=== PATIENT | male | born 1950 | race Caucasian/White ===

== ENCOUNTER 2023-06-11 20:09 | Emergency (ER) | payer MEDICARE, OTHER, SELFPAY ==
[2023-06-11 20:38] VITALS: BP 102/76; PULSE 61; RESP 17; TEMP 36.4; O2SAT 96
[2023-06-11 22:23] VITALS: BP 112/72; PULSE 109; RESP 21; TEMP 36.3; O2SAT 94
[2023-06-11] MEDS: ACETAMINOPHEN 500 MG TABLET 1000 MG PO (23:44)
[2023-06-11 23:51] VITALS: BP 110/76; PULSE 93; RESP 20; O2SAT 95
[2023-06-12 00:18] LABS: Strep Group A RT-PCR NOT DETECTED (Negative)
--- NOTE | 2023-06-12 00:24 | ED.GENADULT ---
HPI - General Adult General Chief complaint: Unspecified Stated complaint: sore throat Time Seen by Provider: 06/11/23 23:20 Source: patient Mode of arrival: ambulatory Limitations: no limitations History of Present Illness HPI narrative: This is a 72 year old male that presents to the ER for sore throat. Ongoing since this morning. Associated with rhinorrhea and a mild cough. Reports subjective fevers. Denies shortness of breath. Related Data Allergies Allergy/AdvReac Type Severity Reaction Status Date / Time No Known Allergies Allergy Verified 06/11/23 23:40 Review of Systems Review of Systems: CONSTITUTIONAL: Reports fever ENT: Reports rhinorrhea, congestion, sore throat RESPIRATORY: Reports cough. Denies dyspnea. All systems reviewed & are unremarkable except as noted in HPI and below PMFSH Past Medical History Medical History (Updated 06/12/23 @ 00:35 by Bessie Herzog PA-C) No active medical problems Social History Social History (Updated 06/12/23 @ 00:26 by Bessie Herzog PA-C) Smoking status: Former smoker Exam Narrative: GENERAL: Disheveled, well-nourished, and in no acute distress. HEAD: Normocephalic, atraumatic. EYES: EOMI. ENT: Nares clear, no rhinorrhea or epistaxis. Mucous membranes moist. Oropharynx with mild, symmetric tonsillar hypertrophy, no exudate or other lesions. Uvula midline. No trismus. Bilateral TMs pearly sue non-bulging NECK: Supple. No adenopathy or masses. CHEST: Clear to auscultation. No respiratory distress. No wheezes rales or rhonchi HEART: Regular rate and rhythm. No murmur heard. Normal peripheral pulses. EXTREMITIES: Normal range of motion. No edema. SKIN: Warm, dry, no rash. NEURO: No focal deficits. Alert and oriented x3. PSYCH: Normal mood and affect Course Course Emergency Course: Patient updated on workup and agrees with plan of care Vital Signs Vital signs: Vital Signs Temperature 97.6 F 06/11/23 20:38 Pulse Rate 61 06/11/23 20:38 Respiratory Rate 17 06/11/23 20:38 Blood Pressure 102/76 06/11/23 20:38 Pulse Oximetry 96 06/11/23 20:38 Temperature 97.4 F L 06/11/23 22:23 Pulse Rate 93 06/11/23 23:51 Respiratory Rate 20 06/11/23 23:51 Blood Pressure 110/76 06/11/23 23:51 Pulse Oximetry 95 06/11/23 23:51 Medical Decision Making MDM Narrative Medical decision making narrative: Patient presents to the emergency department for cold symptoms present since this morning. He is afebrile and nontoxic-appearing. His vitals are stable. Lungs are clear on exam. Largely endorsing sore throat. He has mild, symmetric tonsillar hypertrophy. Uvula is midline. No trismus. Influenza, COVID, and strep screens are negative. Patient was instructed on further care of viral infection. He is to follow-up with primary provider. He was given warnings to return to the ER Vital Signs Vital Signs: Vital Signs Temperature 97.6 F 06/11/23 20:38 Pulse Rate 61 06/11/23 20:38 Respiratory Rate 17 06/11/23 20:38 Blood Pressure 102/76 06/11/23 20:38 Pulse Oximetry 96 06/11/23 20:38 Temperature 97.4 F L 06/11/23 22:23 Pulse Rate 93 06/11/23 23:51 Respiratory Rate 20 06/11/23 23:51 Blood Pressure 110/76 06/11/23 23:51 Pulse Oximetry 95 06/11/23 23:51 Lab Data Lab results reviewed: Yes I reviewed the patient's lab results. Labs: Lab Results 06/11/23 Range/Units 23:45 Influenza A (RT-PCR) Negative (Negative) Influenza B (RT-PCR) Negative (Negative) SARS-CoV-2 RNA (RT-PCR) Negative (Negative) Group A Strep (PCR) Not detected (Negative) Critical Care Time Critical Care Time Critical Care Time: No Discharge Plan Discharge Clinical Impression: Upper respiratory infection Qualifiers: URI type: unspecified URI Qualified Code(s): J06.9 - Acute upper respiratory infection, unspecified Patient Disposition: Home, Self-Care Condition: Stable
[2023-06-12 00:29] LABS: Influenza A QL RT-PCR Negative (Negative); Influenza B QL RT-PCR Negative (Negative); SARS-CoV-2 RNA PCR Negative (Negative)
== END 2023-06-12 00:52 | disposition home or self-care (01) ==
LOC: ANHED 06-12 00:42
PROVIDERS: Emergency Provider Physician Assistant
DX: J06.9 Acute upper respiratory infection, unspecified (principal); Z20.822 Contact with and (suspected) exposure to COVID-19; Z87.891 Personal history of nicotine dependence
CPT/HCPCS: 87636; 87651; 99283; A9270